=== PATIENT | male | born 1980 | race Caucasian/White ===

== ENCOUNTER → 2021-09-12 | Outpatient (CLI) | payer BC ==
[~2021-09-12] MED LIST: COPAXONE 20M20 MG/M1 SQ
== END ==
LOC: COL.RAD 11:06
DX: M89.9 Disorder of bone, unspecified (principal); J32.9 Chronic sinusitis, unspecified

== ENCOUNTER → 2023-06-07 | Outpatient (CLI) | payer BC | LOC: MHCPAIN 11:18 | DX: M54.6 Pain in thoracic spine (principal); R07.89 Other chest pain; M79.2 Neuralgia and neuritis, unspecified; G35 Multiple sclerosis | CPT/HCPCS: G0463 ==

== ENCOUNTER → 2023-10-16 | Outpatient (CLI) | payer BC ==
[~2023-10-16] MED LIST changes: +Iohexol 300 - 100 ML VIAL IV ONE; +NS 100 ML IV SCH
== END ==
LOC: COL.RAD 07:08
DX: E27.8 Other specified disorders of adrenal gland (principal)
CPT/HCPCS: Q9967

== ENCOUNTER → 2023-12-25 | Outpatient (CLI) | payer BC ==
[~2023-12-25] MED LIST changes: -Iohexol 300 - 100 ML VIAL IV ONE; -NS 100 ML IV SCH
== END ==
LOC: MHCPAIN 11:50
DX: M54.6 Pain in thoracic spine (principal); G35 Multiple sclerosis; R07.89 Other chest pain; M79.2 Neuralgia and neuritis, unspecified
CPT/HCPCS: G0463

== ENCOUNTER 2024-04-03 08:50 | Day surgery (SDC) | payer BC ==
[~2024-04-03] VITALS: Ht 185.4 cm; Wt 122.0 kg
[~2024-04-03 08:50] MED LIST changes: +LR 1,000 ML IV SCH
[2024-04-03] MEDS ORDERED: PROVIGIL200 MG PO (10:00)
[2024-04-03] MEDS ORDERED: Indocyanine Green 12.5 MG in Water For Injection,Sterile 2.5 ML IV ONE (10:00)
[2024-04-03] MEDS ORDERED: SINGULAIR 110 MG/TAB PO (10:01)
[2024-04-03] MEDS ORDERED: EPITOL (10:01)
[2024-04-03] MEDS ORDERED: CYMBALTA 30MG30 MG PO (10:02)
[2024-04-03] MEDS ORDERED: PROTONIX 40MG T40 MG PO (10:04)
[2024-04-03] MEDS ORDERED: EZALLOR SPRINKL10 MG PO (10:04)
[2024-04-03] MEDS ORDERED: LYRICA CR165 MG PO (10:05)
[2024-04-03 10:14] VITALS: BP 131/80; PULSE 60; TEMP 98.5
[2024-04-03] MEDS ORDERED: Vecuronium 10 MG VIAL IV ONE (10:34)
[2024-04-03] MEDS ORDERED: Lidocaine PF 2% (20 MG/ML) 5 ML VIAL ONE (10:36)
[2024-04-03] MEDS ORDERED: fentaNYL 50 MCG/ML 5 ML VIAL ONE (10:37)
[2024-04-03] MEDS ORDERED: Ketorolac 30 MG/ML VIAL ONE (11:00)
[2024-04-03] MEDS ORDERED: dexAMETHasone 10 MG/ML VIAL ONE (11:00)
[2024-04-03] MEDS ORDERED: Ondansetron 4 MG/2 ML VIAL ONE (11:00)
[2024-04-03] MEDS ORDERED: Ondansetron 4 MG/2 ML VIAL IV PRN ×2 (11:15→11:45)
[2024-04-03] MEDS ORDERED: Meperidine 50 MG/ML 1 ML VIAL IV PRN (11:15)
[2024-04-03] MEDS ORDERED: fentaNYL 50 MCG/ML 1 ML SYRINGE/VIAL [PACU/SDC ONLY] IV PRN (11:15)
[2024-04-03] MEDS ORDERED: hydrALAZINE 20 MG/ML 1 ML VIAL IV PRN (11:15)
[2024-04-03] MEDS ORDERED: HYDROmorphone 1 MG/1 ML SYRINGE [PACU/SDC ONLY] IV PRN (11:15)
[2024-04-03] MEDS ORDERED: Topical Skin Adhesive 1 EACH (1 ML) TOP ONE (11:34)
[2024-04-03] MEDS ORDERED: NORCO 325 MG-51 TAB PO (11:43)
[2024-04-03] MEDS ORDERED: Acetaminophen 325 MG TAB PO PRN (11:45)
[2024-04-03] MEDS ORDERED: Ibuprofen 600 MG TAB PO PRN (11:45)
[2024-04-03 12:20] VITALS: BP 119/62; PULSE 68; TEMP 98
[2024-04-03 12:35] VITALS: BP 134/69; PULSE 68
[2024-04-03 12:50] VITALS: BP 123/73; PULSE 70
[2024-04-03 13:05] VITALS: BP 122/81; PULSE 70
--- NOTE | 2024-04-03 13:15 | NUR ---
1220 RETURNS TO ROOM 2 PER CART WITH HOB ELEVATED 40 DEGREES. AWAKE, ALERT. RESP UNLABORED. VITAL SIGNS OBTAINED. ABD ROUND, INCISIONS X 4 SITES WITHOUT REDNESS, EDEMA OR DRAINAGE. DENIES DISCOMFORT. CALL LIGHT AT SIDE. IN ROOM 1235 HOB ELEVATED 75 DEGREES. TOLERATES PO JUICE AND PUDDING WITHOUT NAUSEA 1255 DISCHARGE INSTRUCTIONS REVIEWED. PATIENT AND VERBALIZE UNDERSTANDING. COPY PROVIDED IN DISCHARGE FOLDER 1305 SITS ON EDGE OF CART. DRESSES WITH MINIMAL ASSIST FROM . REPORTS MILD DISCOMFORT WITH ACTIVITY. DENIES NEED FOR PAIN MED
== END 2024-04-03 13:17 | disposition home or self-care (01) ==
LOC: SDCO 08:50
DX: K80.10 Calculus of gallbladder with chronic cholecystitis without obstruction (principal); G35 Multiple sclerosis
CPT/HCPCS: J0690; J1100; J1170; J1885; J2405; J2704; J3010; J7120

== ENCOUNTER → 2024-04-15 | Outpatient (CLI) | payer BC ==
[~2024-04-15] MED LIST changes: +CYMBALTA 30MG30 MG PO; +EPITOL; +EZALLOR SPRINKL10 MG PO; -LR 1,000 ML IV SCH; +LYRICA CR165 MG PO; +NORCO 325 MG-51 TAB PO; +PROTONIX 40MG T40 MG PO; +PROVIGIL200 MG PO; +SINGULAIR 110 MG/TAB PO
== END ==
LOC: MHCPAIN 11:22
DX: M54.6 Pain in thoracic spine (principal); G35 Multiple sclerosis; Z90.49 Acquired absence of other specified parts of digestive tract
CPT/HCPCS: G0463